=== PATIENT | female | born 1980 | race Two or more races ===

== ENCOUNTER 2017-11-21 18:21 | Emergency (ER) | payer MEDICAID ==
[~2017-11-21] VITALS: Ht 160 cm; Wt 49.9 kg
[2017-11-21] MEDS ORDERED: NKM (18:35)
[2017-11-21 18:56] VITALS: BP 129/70
[2017-11-21] MEDS ORDERED: Acetaminophen 500mg (ES) tab ORAL ONE (19:30)
--- NOTE | 2017-11-21 19:30 | Emergency Room Report ---
History of Present Illness General Chief Complaint: General Complaint Source: Patient Present Illness HPI 37-year-old female, no significant past medical history, presenting with 2 days of certain neck pain, also with subjective fever and chills. States that she is still been able to eat and drink water however complaining of pain to her neck. No change in voice. No sick contacts or recent travel. No cough. No nausea vomiting diarrhea Allergies: Coded Allergies: No Known Allergies (Unverified , 11/21/17) Patient History Past Medical History: see triage record Past Surgical History: none Pertinent Family History: none Now: No Reviewed Nursing Documentation: PMH: Agreed; PSxH: Agreed Nursing Documentation-PMH Past Medical History: No Stated History Review of Systems All Other Systems: negative except mentioned in HPI Physical Exam Vital Signs Date Time Temp Pulse Resp B/P (MAP) Pulse Ox O2 Delivery O2 Flow Rate FiO2 11/21/17 18:31 98.9 130 24 145/74 99 Room Air 99.0 Sp02 EP Interpretation: reviewed, normal General Appearance: alert, GCS 15, non-toxic, moderate distress Head: normocephalic, atraumatic Eyes: bilateral eye normal inspection, bilateral eye PERRL, bilateral eye EOMI ENT: uvula midline, pharyngeal erythema, other - no exxudates Neck: no meningismus, no bony tend, other - TTP anterior region, worse with flexion of neck, not worse with extension Respiratory: normal inspection, lungs clear, normal breath sounds, no respiratory distress, no retraction, no wheezing, speaking full sentences, chest symmetrical Cardiovascular #1: normal peripheral pulses, no edema, normal capillary refill , tachycardia Cardiovascular #2: 2+ radial (R), 2+ radial (L) Gastrointestinal: normal inspection, non tender, soft, non-distended, no guarding Musculoskeletal: normal inspection, back normal, normal range of motion, non- tender Neurologic: normal inspection, alert, oriented x3, responsive, motor strength/ tone normal, sensory intact, normal gait, speech normal Psychiatric: normal inspection, judgement/insight normal, memory normal Skin: normal inspection, normal color, no rash, warm/dry, well hydrated, normal turgor Medical Decision Making Diagnostic Impression: Primary Impression: Pharyngitis Additional Impression: Throat pain ER Course 37-year-old female with sore throat/neck pain DDX: Viral vs. infectious mononucleosis vs. bacterial pharyngitis vs. allergies Other serious causes such as SENIOR PRODUCT CONSULTANT / RPA / deep space neck infection Plan: Labs, pain control, CT neck ER course: Patient remains stable in ED. Pt states improvement of pain CT Neg Disposition: Patient will be discharged to home. Patient will follow up with primary care doctor within 5 days. Strict return precautions discussed with patient such as worsening throat pain/swelling, dysphagia, high fever or chills, shortness of breath, abdominal pain, which may indicate severe illness. Patient verbalized understanding and agreed with plan. Please note that this Emergency Department Report was dictated using [employer] coding machine operator technology software, occasionally this can lead to erroneous entry secondary to interpretation by the dictation equipment. Laboratory Tests Test 11/21/17 19:06 White Blood Count 10.0 K/UL (4.8-10.8) Red Blood Count 4.00 M/UL (4.20-5.40) L Hemoglobin 11.0 G/DL (12.0-16.0) L Hematocrit 33.1 % (37.0-47.0) L Mean Corpuscular Volume 83 FL (80-99) Mean Corpuscular Hemoglobin 27.6 PG (27.0-31.0) Mean Corpuscular Hemoglobin Concent 33.3 G/DL (32.0-36.0) Red Cell Distribution Width 13.0 % (11.6-14.8) Platelet Count 563 K/UL (150-450) H Mean Platelet Volume 5.2 FL (6.5-10.1) L Neutrophils (%) (Auto) 71.3 % (45.0-75.0) Lymphocytes (%) (Auto) 19.4 % (20.0-45.0) L Monocytes (%) (Auto) 7.7 % (1.0-10.0) Eosinophils (%) (Auto) 0.7 % (0.0-3.0) Basophils (%) (Auto) 0.9 % (0.0-2.0) Urine Color Pale yellow Urine Appearance Clear Urine pH 7 (4.5-8.0) Urine Specific [place] 1.010 (1.005-1.035) Urine Protein Negative (NEGATIVE) Urine Glucose (UA) Negative (NEGATIVE) Urine Ketones Negative (NEGATIVE) Urine Occult Blood 2+ (NEGATIVE) H Urine Nitrite Negative (NEGATIVE) Urine Bilirubin Negative (NEGATIVE) Urine Urobilinogen Normal MG/DL (0.0-1.0) Urine Leukocyte Esterase 2+ (NEGATIVE) H Urine RBC 2-4 /HPF (0 - 2) H Urine WBC 2-4 /HPF (0 - 2) Urine Squamous Epithelial Cells Few /LPF (NONE/OCC) Urine Bacteria Few /HPF (NONE) Urine HCG, Qualitative Negative (NEGATIVE) Sodium Level 137 MMOL/L (136-145) Potassium Level 3.6 MMOL/L (3.5-5.1) Chloride Level 100 MMOL/L (98-107) Carbon Dioxide Level 26 MMOL/L (21-32) Anion Gap 11 mmol/L (5-15) Blood Urea Nitrogen 8 mg/dL (7-18) Creatinine 0.6 MG/DL (0.55-1.30) Estimate Glomerular Filtration Rate > 60 mL/min (>60) Glucose Level 111 MG/DL (74-106) H Calcium Level 9.1 MG/DL (8.5-10.1) Total Bilirubin 0.3 MG/DL (0.2-1.0) Aspartate Amino Transferase (AST) 10 U/L (15-37) L Alanine Aminotransferase (ALT) 15 U/L (12-78) Alkaline Phosphatase 86 U/L (46-116) Total Protein 8.1 G/DL (6.4-8.2) Albumin 3.6 G/DL (3.4-5.0) Globulin 4.5 g/dL Albumin/Globulin Ratio 0.8 (1.0-2.7) L CT/MRI/US Diagnostic Results CT/MRI/US Diagnostic Results : Imaging Test Ordered: CT Neck Impression CT NECK: No acute fracture or subluxation. Possible mild edema near thyroid. No abnormal mass or collection. No radiopaque foreign body. No arterial abnormality. Last Vital Signs Date Time Temp Pulse Resp B/P (MAP) Pulse Ox O2 Delivery O2 Flow Rate FiO2 11/21/17 18:56 99.0 120 20 129/70 99 Room Air 99.0 Disposition: HOME, SELF-CARE Condition: Improved Referrals: NON PHYSICIAN (PCP) Sona Stewart M.D. Nov 21, 2017 19:30
[2017-11-21 19:33] LABS: BASOPHILS % (AUTO) 0.9 % (0.0-2.0); EOSINOPHILS % (AUTO) 0.7 % (0.0-3.0); HEMATOCRIT 33.1 % (37.0-47.0); LYMPHOCYTES % (AUTO) 19.4 % (20.0-45.0); MEAN CORPUSCULAR VOLUME 83 FL (80-99); MONOCYTES % (AUTO) 7.7 % (1.0-10.0); NEUTROPHILS % (AUTO) 71.3 % (45.0-75.0); PLATELET COUNT 563 K/UL (150-450)
[2017-11-21 19:44] LABS: APPEARANCE,URINE CLEAR; BILIRUBIN, URINE NEGATIVE (NEGATIVE); COLOR,URINE PALE YELLOW; GLUCOSE, URINE (UA) NEGATIVE (NEGATIVE); KETONES,URINE NEGATIVE (NEGATIVE); LEUKOCYTE ESTERASE ,URINE 2+ (NEGATIVE); NITRITE,URINE NEGATIVE (NEGATIVE); PH,URINE 7 (4.5-8.0); PROTEIN,URINE NEGATIVE (NEGATIVE); UROBILINOGEN,URINE NORMAL MG/DL (0.0-1.0)
[2017-11-21 19:49] LABS: ANION GAP 11 mmol/L (5-15); BLOOD UREA NITROGEN 8 mg/dL (7-18); CALCIUM 9.1 MG/DL (8.5-10.1); CARBON DIOXIDE 26 MMOL/L (21-32); CHLORIDE 100 MMOL/L (98-107); CREATININE 0.6 MG/DL (0.55-1.30); POTASSIUM 3.6 MMOL/L (3.5-5.1); SODIUM 137 MMOL/L (136-145)
[2017-11-21 19:56] LABS: ALANINE AMINOTRANSFERASE 15 U/L (12-78); ALBUMIN 3.6 G/DL (3.4-5.0); ALBUMIN/GLOBULIN RATIO 0.8 (1.0-2.7); ALKALINE PHOSPHATASE 86 U/L (46-116); ASPARTATE AMINO TRANSFERASE 10 U/L (15-37); BILIRUBIN,TOTAL 0.3 MG/DL (0.2-1.0)
[2017-11-21] MEDS ORDERED: IBUPROFEN600 MG ORAL (20:32)
[2017-11-21 20:40] VITALS: BP 101/55
[2017-11-21 20:53] VITALS: BP 101/55
--- NOTE | 2017-11-22 09:18 | Diagnostic Imaging Report ---
Indication: Neck pain Technique: CT scan of the neck was performed utilizing automated exposure control without intravenous contrast material. Continuous helical scanning was obtained with displayed 5 mm sections in axial, sagittal and coronal planes. Comparison: None CT dose: Total DLP 452 mGycm; CTDI vol 17.0 mGy Findings: The nasopharynx, oropharynx, hypopharynx and larynx demonstrate patency without obvious mass. The bilateral parotid, submandibular and sublingual glands are normal in size and morphology without calcification. The oral tongue, tongue base and floor of mouth demonstrate no obvious mass. The thyroid gland is mildly heterogeneous but no discretely measurable masses are seen. Visualized lung apices are clear other than calcified granuloma in the left upper lobe. Osseous structures demonstrate no acute abnormality. Impression: Patent airway without drainable fluid collection. Heterogeneous thyroid. Correlation with ultrasound recommended. Calcified granuloma in the left upper lobe. The CT scanner at [facility] is accredited by the [employer] and the scans are performed using protocols designed to limit radiation exposure to as low as reasonably achievable to attain images of sufficient resolution adequate for diagnostic evaluation.
== END 2017-11-21 20:53 | disposition home or self-care (01) ==
LOC: EMR 19:22
DX: J02.9 Acute pharyngitis, unspecified (principal); R07.0 Pain in throat
CPT/HCPCS: 36415; 70491; 80053; 81003; 81025; 85025; 99284; Q9967

== ENCOUNTER 2020-06-07 19:44 | Emergency (ER) | payer MEDICAID ==
[~2020-06-07] VITALS: Ht 160 cm; Wt 52.2 kg
[~2020-06-07 19:44] MED LIST: IBUPROFEN600 MG ORAL; NKM
[2020-06-07 20:58] VITALS: BP 128/75
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
[2020-06-07] MEDS ORDERED: Acetaminophen 500mg (ES) tab ORAL ONE (21:00)
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
--- NOTE | 2020-06-07 21:23 | Diagnostic Imaging Report ---
EXAM: CT Head Without Intravenous Contrast CLINICAL HISTORY: TRAUMA TECHNIQUE: Axial computed tomography images of the head/brain without intravenous contrast. CTDI is 19.6 mGy and DLP is 461.5 mGy-cm. One or more of the following dose reduction techniques were used: automated exposure control, adjustment of the mA and/or kV according to patient size, use of iterative reconstruction technique. COMPARISON: No relevant prior studies available. FINDINGS: Limitations: Evaluation is somewhat limited secondary to artifact. Brain: Unremarkable. No hemorrhage. No significant white matter disease. No edema. Ventricles: Unremarkable. Bones/joints: Unremarkable. No acute fracture. Soft tissues: Unremarkable. Sinuses: Unremarkable as visualized. No acute sinusitis. Mastoid air cells: Unremarkable as visualized. No mastoid effusion. IMPRESSION: No definite CT evidence for acute intracranial injury.
--- NOTE | 2020-06-07 21:27 | Diagnostic Imaging Report ---
EXAM: CT Lumbar Spine Without Intravenous Contrast CLINICAL HISTORY: TRAUMA TECHNIQUE: Axial computed tomography images of the lumbar spine without intravenous contrast. CTDI is 4.8 mGy and DLP is 157.6 mGy-cm. One or more of the following dose reduction techniques were used: automated exposure control, adjustment of the mA and/or kV according to patient size, use of iterative reconstruction technique. Coronal and sagittal reformatted images were created and reviewed. COMPARISON: No relevant prior studies available. FINDINGS: Vertebrae: No evidence for acute lumbar spine fracture. The vertebral alignment is normal. Discs/spinal canal/neural foramina: No acute findings. Soft tissues: The soft tissues are grossly unremarkable for a noncontrast CT. IMPRESSION: No evidence for acute lumbar spine fracture.
--- NOTE | 2020-06-07 21:32 | Diagnostic Imaging Report ---
EXAM: CT Cervical Spine Without Intravenous Contrast CLINICAL HISTORY: TRAUMA TECHNIQUE: Axial computed tomography images of the cervical spine without intravenous contrast. CTDI is 19.6 mGy and DLP is 461.5 mGy-cm. One or more of the following dose reduction techniques were used: automated exposure control, adjustment of the mA and/or kV according to patient size, use of iterative reconstruction technique. Coronal and sagittal reformatted images were created and reviewed. COMPARISON: No relevant prior studies available. FINDINGS: Vertebrae: No evidence for acute cervical spine fracture. Straightening of the normal cervical lordosis which may be related to muscle spasm. Discs/spinal canal/neural foramina: No acute findings. Soft tissues: The soft tissues are grossly unremarkable for a noncontrast CT. IMPRESSION: 1. No evidence for acute cervical spine fracture. 2. Straightening of the normal cervical lordosis which may be related to muscle spasm.
[2020-06-07] MEDS ORDERED: IBUPROFEN600 M1 ORAL (21:33)
[2020-06-07] MEDS ORDERED: CYCLOBENZAPRINE10 MG ORAL (21:33)
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
[2020-06-07 21:41] VITALS: BP 125/72
== END 2020-06-07 21:45 | disposition home or self-care (01) ==
LOC: EMR 20:21
DX: S39.012A Strain of muscle, fascia and tendon of lower back, initial encounter (principal); S13.4XXA Sprain of ligaments of cervical spine, initial encounter; V43.62XA Car passenger injured in collision with other type car in traffic accident, initial encounter; Y92.9 Unspecified place or not applicable; R42 Dizziness and giddiness
CPT/HCPCS: 70450; 72125; 72131; Z7502; 99284